=== PATIENT | female | born 1980 | race African-American/Black ===

== ENCOUNTER 2016-09-09 20:20 | Emergency (ER) | payer OTHER ==
[~2016-09-09] VITALS: Ht 154.9 cm; Wt 61.7 kg
[~2016-09-09 20:20] MED LIST: ALBUTEROL0.09 MG/A1 INH; CLARITIN10 MG PO; DUONEB 3 MG/3 ML3 ML INH/SOL; NORVASC 2.5 MG2.5 MG PO; PREDNISONE10 MG PO; PRILOSEC 20MG C20 MG PO; SINGULAIR10 MG PO; SYMBICORT 160/41 PUF INH
[2016-09-09 22:17] LABS: ABSOLUTE BASOPHIL COUNT 0.2 /CUMM (0.0-0.2); ABSOLUTE EOSINOPHIL COUNT 0.6 /CUMM (0.0-0.7); ABSOLUTE GRANULOCYTE CT 4.4 /CUMM (1.4-6.5); ABSOLUTE LYMPH COUNT 2.2 /CUMM (1.2-3.4); ABSOLUTE MONOCYTE COUNT 0.3 /CUMM (0.10-0.60); EOSINOPHIL % 7.5 % (0-5); GRANULOCYTE % 57.9 % (42.2-75.2); HEMATOCRIT 38.9 % (37-47); MEAN CORPUSCULAR HGB CONC 33.4 G/DL (33.0-37.0); MEAN CORPUSCULAR VOLUME 86.9 FL (81.0-99.0); MEAN PLATELET VOLUME 7.9 FL (7.4-10.4); PLATELET COUNT 283 /CUMM (130-400); RBC DISTRIBUTION WIDTH 12.7 % (11.5-14.5); RED BLOOD CELL CT 4.47 /CUMM (4.20-5.40); WHITE BLOOD CELL COUNT 7.7 /CUMM (4.8-10.8)
--- NOTE | 2016-09-09 22:27 | ED GENERAL ADULT ---
History of Present Illness General Chief Complaint: Dizziness Stated Complaint: DIZZINESS,CP Source: patient Exam Limitations: no limitations Allergies Coded Allergies: NO KNOWN ALLERGIES (01/03/15) Reconcile Medications Albuterol Sulfate (Proair Hfa) 90 MCG HFA.AER.AD 2 PUF INH 4XDAILY PRN ASTHMA (Reported) Aluminum Chloride (Drysol) 20 % SOLUTION 1 ADAL TOP PRN ARMPITS (Reported) Cholecalciferol (Vitamin D3) (Vitamin D-3) (Unknown Strength) CAPSULE (Unknown Dose) PO DAILY SUPPLEMENT (Reported) Cyclosporine (Restasis) 0.05 % DROPERETTE 1 GTT OPH BID BOTH EYES (Reported) Fluticasone Propionate 50 MCG/ACTUATION SPRAY.SUSP 1 SPRAY NASB DAILY ALLERGIES (Reported) Lactobacillus Acidophilus (Acidophilus) 1 EACH CAPSULE 1 CAP PO DAILY PROBIOTIC (Reported) Loratadine 10 MG TABLET 1 TAB PO DAILY PRN ALLERGIES (Reported) Meclizine HCl 25 MG TABLET 1 TAB PO Q6P VERTIGO Medroxyprogesterone Acetate 150 MG/ML SYRINGE 1 ML IM Q3M CONTROL ( Reported) Mometasone Furoate (Asmanex) 220 MCG (60 DOSES) AER.POW.BA 1 PUFF INH DAILY ASTHMA (Reported) Ranitidine (Ranitidine HCl) 150 MG TABLET 1 TAB PO DAILY GI (Reported) Triage Note: PT TO TRIAGE WITH C/O DIZZINESS, INTERMITTENT CHEST TIGHTNESS 5/10, UNSTEADY GAIT xWEEK. EKG DONE IN [facility] 80'S. TEMP 100.7 IN TRIAGE. PT DENIES SOB,N/V/D,ABD PAIN,URINARY S/S. HX OF ASTHMA. Triage Nurses Notes Reviewed? yes Onset: Gradual Duration: waxing and waning, worse persistent since (LAST 2 DAY) Timing: no prior history Injury Environment: home Severity: moderate Modifying Factors: Improves With: immobilization. Worsens With: movement. : No Patient currently breastfeeds: No HPI: Patient is a 36-year-old female with history of asthma presenting to the emergency department with chief complaint of intermittent dizziness and feeling off balance for the past 1-2 weeks. She reports symptoms are worse when she is trying to walk. She does get occasional ringing in her years but not associated with the dizziness. Denies any nausea or vomiting. No history of similar symptoms in the past. Denies any falls. She does report that she's had elevated blood pressure over the past several months for which she's been tracking with her primary care physician. They're holding off on starting her on any medications to see if she can control it with diet and exercise. Patient denying any visual changes. She reports over the past couple days she is felt like her head was "in a fog. She feels like she drifts towards the left with walking. Denies any numbness or tingling. No weakness. Denies any urinary frequency urgency dysuria. She does have history of seasonal allergies but denies any sinus congestion or inflammation. She reports that her primary care physician evaluated her for thyroid dysfunction which was negative. Denies any family history of autoimmune process. Positive family history of hypertension. She has also been reporting intermittent chest tightness in the central aspect of her chest. Nothing seems to make it better or worse. No chest pain at this time. No shortness of breath. Denies any unilateral leg swelling. (FREDERIC BURDICK) Vital Signs & Intake/Output Vital Signs & Intake/Output Vital Signs Date Time Temp Pulse Resp B/P B/P Pulse O2 O2 Flow FiO2 Mean Ox Delivery Rate 09/10 0052 98.5 77 20 152/92 99 Room Air 09/09 2340 98.3 78 20 168/98 09/09 2257 98.3 78 20 168/98 99 Room Air 09/09 2106 100.7 78 18 151/97 98 Room Air ED Intake and Output 09/10 0000 09/09 1200 Intake Total Output Total Balance Patient 136 lb Weight Weight Reported by Patient Measurement Method Past History Travel History Traveled to [place] past 21 day No Medical History Any Pertinent Medical History? see below for history Neurological: NONE EENT: NONE Cardiovascular: NONE Respiratory: asthma Gastrointestinal: NONE Hepatic: NONE Renal: NONE Musculoskeletal: NONE Psychiatric: NONE Endocrine: NONE Blood Disorders: NONE Cancer(s): NONE PRODUCTION SUPPORT SUPERVISOR/Reproductive: NONE History of MRSA: No History of VRE: No History of CDIFF: No Influenza Vaccine: 02/28/14 Surgical History Surgical History: non-contributory Psychosocial History Who do you live with Spouse Services at Home None What is your primary language Palestinian Tobacco Use: Never used Family History Family History, If Any: MOTHER FH: diabetes mellitus Hx Contributory? No (FREDERIC BURDICK) Review of Systems Review of Systems Constitutional: Reports: no symptoms. Comments Review of systems: See HPI, All other systems negative. Constitutional, no chills fever or weight loss HEENT: No visual changes no sore throat no congestion Cardiovascular: No palpitation , orthopnea or ankle swelling Skin, no jaundice no rashes Respiratory: No dyspnea cough sputum or hemoptysis GI: No nausea no vomiting : No dysuria No hematuria Muscle skeletal: no back pain, no neck pain, Neurologic: No numbness no confusion Psych: No stress anxiety or depression,. Heme/endocrine: No bruising no bleeding no polyuria or polydipsia Immunology: No splenectomy or history of AIDS (ANNE-MARIE ESTRADA,FREDERIC) Physical Exam Physical Exam General Appearance: well developed/nourished, no apparent distress, alert, awake , comfortable Comments: Well-developed well-nourished person in no acute distress HEENT: extraocular motion intact, no nystagmus. Pupils equally round and reactive to light and accommodation. Contacts in place. Mild subconjunctival hemorrhage noted in the 4 o'clock position on the left eye. Nose is atraumatic. External auditory canal and Tympanic membranes clear. Pharynx normal. No swelling or edema. Funduscopic is somewhat limited secondary to no dilation, no obvious venous nicking or retinal hemorrhage. Slight exophthalmos noted. Neck: Supple, no lymphadenopathy, normal range of motion without pain or tenderness Back: Nontender, no CVA tenderness. Full range of motion Cardiovascular: Regular rate and rhythms no murmurs rubs or gallops, normal JVP Respiratory: Chest nontender. No respiratory distress.breath sounds clear to auscultation bilaterally Abdomen: Soft, nontender nondistended, no appreciable organomegaly. Normal bowel sounds. No ascites, no rebound or guarding. Extremity: No edema, no calf tenderness to palpation, normal and equal pulses. Muscular strength is 5 out of 5 in all Chevys. Vo[employer] Network Technician strength is equal and symmetric bilaterally. Neuro: Alert oriented x3, motor sensory normal, cranial nerves II through XII grossly intact. Cerebellar testing is unremarkable. Able to perform rapid alternating hand movement finger to nose testing without difficulty. Negative arm drift bilaterally. Patient slightly leans back with Romberg but is able to self-correct. STEADY gait. Skin: No appreciable rash on exposed skin, skin is warm and dry. Psych: Mood and affect is normal, memory and judgment is normal. Core Measures ACS in differential dx? No CVA/TIA Diagnosis: No Severe Sepsis Present: No Septic Shock Present: No (FREDERIC BURDICK) Progress Differential Diagnoses I considered the following diagnoses in my evaluation of the patient: Hypertension, intracranial hemorrhage, intracranial mass, MS, AUTO immune process Diagnostic Imaging: Viewed by Me: CT Scan. Discussed w/RAD: CT Scan. Radiology Impression: PATIENT: CAMBRIDGEIANH PRESENT AGE: 36 PATIENT ACCOUNT NO: [id number] : 81 LOCATION: [facility] ORDERING PHYSICIAN: FREDERIC ESTRADA SERVICE DATE: 09/09/16 EXAM TYPE: CAT - CT HEAD W&WO IV CONTRAST EXAMINATION: CT HEAD WITHOUT AND WITH CONTRAST CLINICAL INFORMATION: Drifting to the left while walking concern for subtle abdominal process COMPARISON: None TECHNIQUE: Contiguous axial imaging was performed from the skull base to vertex before and after the administration of 93 mL of Optiray 320 intravenous contrast. DLP: 1118.5 mGy-cm FINDINGS: There is no evidence of acute intracranial hemorrhage or territorial infarction. No abnormal mass effect or midline shift is seen. Reveles to white matter differentiation is well preserved. No extra-axial fluid collections are identified. There is no abnormal enhancement. The ventricles are normal in size. There is no abnormal attenuation within the brain parenchyma. The osseous structures and soft tissues are normal. The mastoid air cells and visualized portions of the paranasal sinuses are well aerated. IMPRESSION: No acute intracranial pathology. DICTATED BY: ISIS FUENTES MD DATE/TIME DICTATED:09/09/162349 LOGISTIC MANAGER:ELINA DATE/TIME TRANSCRIBED:09/09/162349 CONFIDENTIAL, DO NOT COPY WITHOUT APPROPRIATE AUTHORIZATION. <Electronically signed in Other Vendor System> SIGNED BY: ISIS FUENTES MD 09/09/162355 Initial ED EKG: NSR Hand-Off Endorsed To: JAMARCUS MARCIAL MD (FREDERIC BURDICK) Plan of Care: Orders Procedure Date/time Status Add-on Test (ER Only) 09/10 2255 Active Add-on Test (ER Only) 09/09 2252 Active Add-on Test (ER Only) 09/09 2244 Active MISTAKE 09/09 2244 Active TSH REFLEX 09/09 2202 Complete LYME TITRE 09/09 2202 Complete HUMAN BETA HCG SCREEN 09/09 2202 Complete D-DIMER 09/09 2202 Complete TROPONIN LEVEL 09/09 2129 Complete MAGNESIUM 09/09 2129 Complete COMPREHENSIVE METABOLIC PANEL 09/09 2129 Complete CBC WITHOUT DIFFERENTIAL 09/09 2129 Complete EKG 09/09 2021 Active Laboratory Tests 09/09/162202: Anion Gap 10, Estimated GFR > 60, BUN/Creatinine Ratio 12.2, Glucose 111 H, Calcium 9.4, Magnesium 2.1, Total Bilirubin 1.1, AST 19, ALT 32, Alkaline Phosphatase 76, Troponin I < 0.01, Total Protein 7.2, Albumin 4.1, Globulin 3.1, Albumin/Globulin Ratio 1.3, TSH &T3 &Free T4 Intrp 1.330, Total Beta HCG NEGATIVE, D-Dimer < 200, CBC w Diff NO MAN DIFF REQ, RBC 4.47, MCV 86.9, MCH 29.0, RDW 12.7, MPV 7.9, Gran % 57.9, Lymphocytes % 28.6, Monocytes % 4.0, Eosinophils % 7.5 H, Basophils % 2.0, Absolute Granulocytes 4.4, Absolute Lymphocytes 2.2, Absolute Monocytes 0.3, Absolute Eosinophils 0.6, Absolute Basophils 0.2, PUBS MCHC 33.4, Lyme Disease Antibody 0.17 Radiology Impression: [facility] 36 PATIENT ACCOUNT NO: [id number] : 81 LOCATION: [facility] ORDERING PHYSICIAN: FREDERIC ESTRADA SERVICE DATE: 09/09/16 EXAM TYPE: CAT - CT HEAD W&WO IV CONTRAST EXAMINATION: CT HEAD WITHOUT AND WITH CONTRAST CLINICAL INFORMATION: Drifting to the left while walking concern for subtle abdominal process COMPARISON: None TECHNIQUE: Contiguous axial imaging was performed from the skull base to vertex before and after the administration of 93 mL of Optiray 320 intravenous contrast. DLP: 1118.5 mGy-cm FINDINGS: There is no evidence of acute intracranial hemorrhage or territorial infarction. No abnormal mass effect or midline shift is seen. Reveles to white matter differentiation is well preserved. No extra-axial fluid collections are identified. There is no abnormal enhancement. The ventricles are normal in size. There is no abnormal attenuation within the brain parenchyma. The osseous structures and soft tissues are normal. The mastoid air cells and visualized portions of the paranasal sinuses are well aerated. IMPRESSION: No acute intracranial pathology. DICTATED BY: ISIS FUENTES MD DATE/TIME DICTATED:09/09/162349 LOGISTIC MANAGER:ELINA DATE/TIME TRANSCRIBED:09/09/162349 CONFIDENTIAL, DO NOT COPY WITHOUT APPROPRIATE AUTHORIZATION. <Electronically signed in Other Vendor System> SIGNED BY: ISIS FUENTES MD 09/09/16 1337 Comments: 09/10/2016 12:32:13 AM patient signed out to me by NATALIE. Evaluation is unremarkable at this time. No significant findings to suggest CVA and no risk factors to suggest cardiovascular disease or vertebrobasilar insufficiency. Likewise there is no convincing signs or symptoms of normal pressure hydrocephalus. I feel patient is stable for outpatient follow-up. Even though she is not describing vertigo she is willing to try meclizine. (RIK CONTRERAS,JAMARCUS Tee) Departure Departure Condition: Stable Referrals: GARRETT CONTRERAS,MAYA Laura (PCP/Family) Departure Forms: Customer Survey General Discharge Information Prescriptions: Current Visit Scripts Meclizine HCl 1 TAB PO Q6P #20 TAB (ANNE-MARIE ESTRADA,FREDERIC) Departure Disposition: HOME OR SELF CARE Clinical Impression Primary Impression: Dizziness Additional Instructions: Meclizine as prescribed for dizziness. Maintain a good fluid intake and a low salt diet. Follow-up with your primary care doctor as scheduled tomorrow for reevaluation and further testing as indicated. Return if any concerns or sudden worsening. Please note that there might be incidental findings in your evaluation that are unrelated to the current emergency department visit. Please notify your primary care doctor about this emergency department visit in order to obtain and review all of the testing performed so that these incidental findings can be monitored as needed. If you had an x-ray performed, please understand that some fractures may not be seen on the initial set of x-rays. If your symptoms persist you might need a repeat set of x-rays to check for such a fracture. If you had a laceration evaluated, please understand that foreign bodies such as glass or wood may not be visible to the naked eye or on plain x-rays. If the wound becomes red, swollen, increasingly more painful or if there is any drainage from the wound, please have it reevaluated by a physician for the possibility of a retained foreign body. Thank you for choosing the [facility] Emergency Department for your care. It was a pleasure to serve you today. Jamarcus Marcial M.D. [facility] (RIK CONTRERAS,JAMARCUS Tee) Critical Care Note Critical Care Note Critical Care Time: non-applicable (ANNE-MARIE ESTRADA,FREDERIC)
[2016-09-09] MEDS ORDERED: PROAIR HFA8.5 GM INH (22:33)
[2016-09-09] MEDS ORDERED: ASMANEX220 MC2 INH (22:33)
[2016-09-09] MEDS ORDERED: RANITIDINE HCL150 MG PO (22:34)
[2016-09-09] MEDS ORDERED: FLUTICASONE PRO16 GM NASB (22:34)
[2016-09-09] MEDS ORDERED: LORATADINE10 M1 PO (22:34)
[2016-09-09] MEDS ORDERED: MEDROXYPRO150 MG/11 IM (22:35)
[2016-09-09] MEDS ORDERED: DRYSOL35 ML TOP (22:35)
[2016-09-09] MEDS ORDERED: RESTASIS1 EACH OPH (22:36)
[2016-09-09] MEDS ORDERED: VITAMIN D-32000 UNI1 PO (22:36)
[2016-09-09] MEDS ORDERED: ACIDOPHILUS1 EACH PO (22:36)
--- NOTE | 2016-09-09 23:56 | CT SCAN REPORT ---
EXAMINATION: CT HEAD WITHOUT AND WITH CONTRAST CLINICAL INFORMATION: Drifting to the left while walking concern for subtle abdominal process COMPARISON: None TECHNIQUE: Contiguous axial imaging was performed from the skull base to vertex before and after the administration of 93 mL of Optiray 320 intravenous contrast. DLP: 1118.5 mGy-cm FINDINGS: There is no evidence of acute intracranial hemorrhage or territorial infarction. No abnormal mass effect or midline shift is seen. Reveles to white matter differentiation is well preserved. No extra-axial fluid collections are identified. There is no abnormal enhancement. The ventricles are normal in size. There is no abnormal attenuation within the brain parenchyma. The osseous structures and soft tissues are normal. The mastoid air cells and visualized portions of the paranasal sinuses are well aerated. IMPRESSION: No acute intracranial pathology.
[2016-09-10] MEDS ORDERED: MECLIZINE HCL25 MG PO (00:47)
[2016-09-10 00:52] VITALS: BP 152/92
== END 2016-09-10 00:53 ==
LOC: ERH 20:20
PROVIDERS: Emergency Medicine
DX: R42 Dizziness and giddiness (principal)
CPT/HCPCS: 86618; 93005; 93010